=== PATIENT | female | born 1960 | race Hispanic/Latino ===

== ENCOUNTER → 2023-08-07 | Outpatient (REF) | payer OTHER | LOC: RAD 13:44 | PROVIDERS: ATTEND Student in an Organized Health Care Education/Training Program | DX: M17.0 Bilateral primary osteoarthritis of knee (principal); M25.562 Pain in left knee; M25.561 Pain in right knee; K75.9 Inflammatory liver disease, unspecified; D89.89 Other specified disorders involving the immune mechanism, not elsewhere classified; Z22.7 Latent tuberculosis ==